=== PATIENT | male | born 1955 | race Caucasian/White ===

== ENCOUNTER 2016-07-10 07:02 | Emergency (ER) | payer MEDICAID ==
[2016-07-10 07:15] VITALS: RESP 16; TEMP 98.4
[2016-07-10] MEDS ORDERED: levETIRAcetam 500 MG TAB PO ONE (07:15)
--- NOTE | 2016-07-10 07:18 | EDPHY ---
H & P Stated Complaint: seizure Time Seen by Provider: 07/10/16 07:06 HPI/ROS: CHIEF COMPLAINT: Seizure HISTORY OF PRESENT ILLNESS: The patient is a 60-year-old homeless man who had a seizure at the longterm. He was incontinent of urine. He denies any falls or trauma. He did not bite his tongue. He has a history of epilepsy and is not compliant with his Keppra. He has been seen here several times for the same. He tells me that he has been taking it 100 mg every day. According to the medical record he had been prescribed 500 mg twice daily and recently increased to 1000 mg twice daily. He has not had a fever. He denies any recent drug or alcohol use or withdrawal. He denies having any other significant past medical history. he denies headache REVIEW OF SYSTEMS: Constitutional: denies: chills, fever, recent illness, recent injury EENTM: denies: blurred vision, double vision, nose congestion Respiratory: denies: cough, shortness of breath Cardiac: denies: chest pain, irregular heart rate, lightheadedness, palpitations Gastrointestinal/Abdominal: denies: abdominal pain, diarrhea, nausea, vomiting, blood streaked stools Genitourinary: denies: dysuria, frequency, hematuria, pain Musculoskeletal: denies: joint pain, muscle pain Skin: denies: lesions, rash, jaundice, bruising Neurological: See HPI Hematologic/Lymphatic: denies: blood clots, easy bleeding, easy bruising Immunologic/allergic: denies: HIV/AIDS, transplant EXAM: GENERAL: Well-appearing, thin, in no acute distress. HEAD: Atraumatic, normocephalic. EYES: Pupils equal round and reactive to light, extraocular movements intact, sclera anicteric, conjunctiva are normal. ENT: TMs normal, nares patent, oropharynx clear without exudates. Moist mucous membranes. NECK: Normal range of motion, supple without lymphadenopathy or JVD. LUNGS: Breath sounds clear to auscultation bilaterally and equal. No wheezes rales or rhonchi. HEART: Regular rate and rhythm without murmurs, rubs or gallops. ABDOMEN: Soft, nontender, normoactive bowel sounds. No guarding, no rebound. No masses appreciated. BACK: No CVA tenderness, no spinal tenderness, step-offs or deformities EXTREMITIES: Normal range of motion, no pitting or edema. No clubbing or cyanosis. NEUROLOGICAL: Cranial nerves II through XII grossly intact. Normal speech, normal gait. 5/5 strength, normal movement in all extremities, normal sensation PSYCH: Normal mood, normal affect. SKIN: Warm, dry, normal turgor, no visible rashes or lesions. Source: Patient, EMS, Old records Exam Limitations: No limitations - Personal History Current Tetanus Diphtheria and Acellular Pertussis (TDAP): Unsure Tetanus Vaccine Date: < 10 years - Medical/Surgical History Hx Asthma: No Hx Chronic Respiratory Disease: No Hx Diabetes: No Hx Cardiac Disease: Yes Hx Renal Disease: No Hx Cirrhosis: No Hx Alcoholism: Yes Hx HIV/AIDS: No Hx Splenectomy or Spleen Trauma: No Other PMH: seizures, etoh, noncompliant with Keppra, hep c, HTN, Left shoulder dislocation - Family History Significant Family History: Hypertension - Social History Smoking Status: Former smoker Alcohol Use: Sober Drug Use: Marijuana Constitutional: Initial Vital Signs Temperature (C) 36.9 C 07/10/16 07:12 Heart Rate 100 07/10/16 07:12 Respiratory Rate 16 07/10/16 07:12 Blood Pressure 199/111 H 07/10/16 07:12 O2 Sat (%) 95 07/10/16 07:12 O2 Delivery Mode Room Air Allergies/Adverse Reactions: venom-wasp [Wasp Venom] Allergy (Severe, Verified 07/04/16 06:50) Anaphylaxis venom-honey bee [bee venom (honey bee)] Allergy (Verified 07/04/16 06:50) Home Medications: Medication Instructions Recorded Atenolol [Tenormin 50 mg (*)] 50 mg PO DAILY #30 tab 03/14/16 Acetaminophen [Tylenol 325mg (*)] 650 mg PO Q4 PRN #0 tab 06/11/16 levETIRAcetam [Keppra 500 mg (*)] 1,000 mg PO BID #30 tab 06/11/16 Medical Decision Making ED Course/Re-evaluation: I will administer 1000 mg of Keppra to the patient. This is supposed to be his home medication dose p.o. here with a long discussion about how much he is supposed to be taking and how regularly he is supposed to be taking it. He denies having any new symptoms today and does not wish to have any workup. He sees Dr. Ramonita Arroyo for his seizure management. Also discussed referral to Neurology. 8:20 a.m. the patient seems to have quite a bit of confusion concerning his medication doses. He tells me now that he takes 3000 mg every morning. He does not take any at night. we discussed the fact that it is supposed to be twice daily. I suggested that he take 1500 in the morning and 1500 at night or 1000 mg three times daily. Patient states that he will try this. Will also a follow-up with Neurology. He is eager to go and declines any further workup or testing at this time. Differential Diagnosis: Partial list of the Differential diagnosis considered include but were not limited to; epilepsy, seizure, incontinence, alcohol withdrawal, benzodiazepine withdrawal, medication noncompliance and although unlikely based on the history and physical exam, I also considered head injury, infection, hemorrhage, non accidental trauma,. I discussed these differential diagnoses and the plan with the patient as well as the usual and expected course. The patient understands that the diagnosis is provisional and that in medicine we are not always correct and that further workup is often warranted. Usual and customary warnings were given. All of the patient's questions were answered. The patient was instructed to return to the emergency department should the symptoms at all worsen or return, otherwise to followup with the physician as we discussed. - Data Points Medications Given: Discontinued Medications Levetiracetam (Keppra) 1,000 mg PO EDNOW ONE Stop: 07/10/16 07:16 Last Admin: 07/10/16 07:18 Dose: 1,000 mg Departure - Departure Disposition: Home, Routine, Self-Care Clinical Impression: Seizure Condition: Fair Instructions: Epilepsy (ED), Levetiracetam (By mouth) Additional Instructions: It is important that you take your Keppra 1000 mg twice daily as prescribed. That is 2 tablets in the morning and 2 tablets in the evening. Referrals: NONE *PRIMARY CARE P,. [Primary Care Provider] - As per Instructions Ander Singh DO [Medical Doctor] - As per Instructions
[2016-07-10 08:32] VITALS: BP 159/99; PULSE 82; O2SAT 97
== END 2016-07-10 09:02 | disposition home or self-care (01) ==
LOC: EDUNIT#
DX: G40.909 Epilepsy, unspecified, not intractable, without status epilepticus (principal); I10 Essential (primary) hypertension; Z87.891 Personal history of nicotine dependence

== ENCOUNTER 2016-07-31 11:01 | Emergency (ER) | payer MEDICAID ==
[2016-07-31 11:13] VITALS: RESP 18
--- NOTE | 2016-07-31 12:09 | EDPHY ---
H & P Time Seen by Provider: 07/31/16 12:08 HPI/ROS: CHIEF COMPLAINT: Seizure. HISTORY OF PRESENT ILLNESS: This is a 60-year-old homeless male with a known seizure disorder who presents after having a seizure this morning. He was initially combative and post-ictal but calmed down after a period of time. Blood sugar was adequate. He denies head trauma, neck pain, oral trauma, or other complaints from the seizure. He reports that he has been compliant with his Keppra. He is well-known to this emergency department for seizures. REVIEW OF SYSTEMS: A complete 10-point review of systems was performed and is negative except for those items mentioned in the HPI. Past Medical/Surgical History: Seizure disorder. Social History: Homeless. Smoking Status: Former smoker Physical Exam: General Appearance: Alert, no distress Eyes: Pupils equal and round, no conjunctival pallor or injection ENT, Mouth: Mucous membranes moist Neck: Normal inspection Respiratory: Lungs are clear to auscultation Cardiovascular: Regular rate and rhythm Gastrointestinal: Abdomen is soft and non- tender Neurological: A&O, nonfocal, normal gait Skin: Warm and dry, no rash Extremities: Nontender, no pedal edema Psychiatric: Mood and affect normal Constitutional: Initial Vital Signs Temperature (C) 36.9 C 07/31/16 11:10 Heart Rate 91 07/31/16 11:10 Respiratory Rate 18 07/31/16 11:10 Blood Pressure 162/113 H 07/31/16 11:10 O2 Sat (%) 93 07/31/16 11:10 O2 Delivery Mode Room Air Allergies/Adverse Reactions: venom-wasp [Wasp Venom] Allergy (Severe, Verified 07/04/16 06:50) Anaphylaxis venom-honey bee [bee venom (honey bee)] Allergy (Verified 07/04/16 06:50) Home Medications: Medication Instructions Recorded Atenolol [Tenormin 50 mg (*)] 50 mg PO DAILY #30 tab 03/14/16 Acetaminophen [Tylenol 325mg (*)] 650 mg PO Q4 PRN #0 tab 06/11/16 levETIRAcetam [Keppra 500 mg (*)] 1,000 mg PO BID #30 tab 06/11/16 Medical Decision Making ED Course/Re-evaluation: 500mg PO Keppra administered. No evidence hypoglycemia, status epilepticus or seizure-related trauma. - Data Points Medications Given: Discontinued Medications Levetiracetam (Keppra) 500 mg PO EDNOW ONE Stop: 07/31/16 12:27 Last Admin: 07/31/16 12:34 Dose: 500 mg Departure - Departure Disposition: Home, Routine, Self-Care Clinical Impression: Seizure Condition: Good Instructions: Recurrent Seizures in Adults (ED) Additional Instructions: Continue to take your Keppra as prescribed. Follow up with your primary care provider this week. Return to the emergency department if you experience serious worsening of condition. Referrals: Ramonita Arroyo PA [Primary Care Provider] - As per Instructions Report Scribed for: Fiona Higginbotham Report Scribed by: Gino Hope Date of Report: 07/31/16 Time of Report: 12:09 Physician Review and Approval Statement: 07/31/16 12:09 Portions of this note were transcribed by a medical technologist chemistry. I personally performed a history, physical exam, medical decision making, and confirmed accuracy of information the transcribed note.
[2016-07-31] MEDS ORDERED: levETIRAcetam 500 MG TAB PO ONE (12:26)
[2016-07-31 12:35] VITALS: BP 114/91; PULSE 76; TEMP 98.2; O2SAT 96
== END 2016-07-31 12:39 | disposition home or self-care (01) ==
LOC: EDUNIT#
DX: R56.9 Unspecified convulsions (principal); Z87.891 Personal history of nicotine dependence

== ENCOUNTER 2016-08-31 22:23 | Emergency (ER) | payer MEDICAID ==
[2016-08-31] MEDS ORDERED: LORazepam 2 MG/ML INJ IVP ONE (22:31)
[2016-08-31 22:46] VITALS: BP 106/87; TEMP 97.5
--- NOTE | 2016-08-31 23:26 | EDPHY ---
H & P Time Seen by Provider: 08/31/16 22:24 HPI/ROS: CHIEF COMPLAINT: Seizure HISTORY OF PRESENT ILLNESS: 60-year-old male with a known seizure disorder presents to the emergency department by EMS after having witnessed seizure at the [facility]. The patient apparently was confused consistent with being postictal prior to arrival. He is now alert and oriented. It is not clear whether this patient has been taking his medication or not. He does admit to drinking alcohol. There has been no reported trauma. REVIEW OF SYSTEMS: Constitutional: No fever, no chills. Eyes: No double or blurry vision. ENT: No sore throat. Respiratory: No cough, no shortness of breath. Cardiac: No chest pain. Gastrointestinal: No abdominal pain, vomiting or diarrhea. Genitourinary: No dysuria. Musculoskeletal: No neck or back pain. Skin: No rashes. Neurological: No headache. Past Medical/Surgical History: Traumatic brain injury, seizure disorder, alcohol abuse, hepatitis-C, noncompliant with Keppra Social History: Single Smoking Status: Former smoker Physical Exam: General Appearance: Alert, no distress. Eyes: Pupils equal and round. Extraocular motions are all intact. ENT: Mouth: Mucous membranes moist. Dry blood noted noted around the patient' s lip. Unable to determine if possible laceration or bite to tongue is noted since he will not let me evaluate his mouth. Respiratory: No wheezing, rhonchi, or rales, lungs are clear to auscultation. Cardiovascular: Regular rate and rhythm. Gastrointestinal: Abdomen is soft and nontender, no masses, no rebound or guarding, bowel sounds normal. Neurological: uncooperative, cannot determine. Skin: Warm and dry, no rashes. Musculoskeletal: Nontender to palpate along the cervical, thoracic or lumbar spine. Neck is supple. Extremities: Full range of motion and no peripheral edema. Psychiatric: agitated Constitutional: Initial Vital Signs Temperature (C) 36.4 C 08/31/16 22:30 Heart Rate 84 08/31/16 22:30 Respiratory Rate 18 08/31/16 22:30 Blood Pressure 106/87 H 08/31/16 22:30 O2 Sat (%) 96 08/31/16 22:30 O2 Delivery Mode Room Air Allergies/Adverse Reactions: venom-wasp [Wasp Venom] Allergy (Severe, Verified 08/31/16 22:32) Anaphylaxis venom-honey bee [bee venom (honey bee)] Allergy (Verified 08/31/16 22:32) Home Medications: Medication Instructions Recorded Atenolol [Tenormin 50 mg (*)] 50 mg PO DAILY #30 tab 03/14/16 Acetaminophen [Tylenol 325mg (*)] 650 mg PO Q4 PRN #0 tab 06/11/16 levETIRAcetam [Keppra 500 mg (*)] 1,000 mg PO BID #30 tab 06/11/16 Medical Decision Making ED Course/Re-evaluation: 60-year-old male with a known seizure disorder who is noncompliant with his Keppra presents after having a witnessed seizure at the [facility]. Head CT is pending. Patient was given 1 mg of Ativan IV to prevent recurring seizure. Case was discussed with Dr. Arsenio Saucedo, secondary supervising physician. Differential Diagnosis: Seizure including but not limited to electrolyte abnormality, alcohol withdrawal , medication noncompliance, head injury, and breakthrough seizure. - Data Points Medications Given: Discontinued Medications Lorazepam (Ativan Injection) 1 mg IVP EDNOW ONE Stop: 08/31/16 22:32 Last Admin: 08/31/16 22:41 Dose: 1 mg Departure - Departure Disposition: Home, Routine, Self-Care Clinical Impression: Seizure Condition: Good Referrals: Patient,NotPresent [Primary Care Provider] - As per Instructions
[2016-09-01 00:59] VITALS: PULSE 89; RESP 16; O2SAT 94
== END 2016-09-01 00:59 | disposition home or self-care (01) ==
LOC: EDUNIT#
DX: G40.909 Epilepsy, unspecified, not intractable, without status epilepticus (principal); Z87.891 Personal history of nicotine dependence
CPT/HCPCS: 96374

== ENCOUNTER 2016-09-12 07:19 | Emergency (ER) | payer MEDICAID ==
[2016-09-12 07:27] VITALS: RESP 16; TEMP 98.4
--- NOTE | 2016-09-12 07:27 | EDPHY ---
HPI/HX/ROS/PE/MDM Narrative: CHIEF COMPLAINT: Seizure. HPI: The patient is a 60-year-old male presenting via EMS for a seizure 30 minutes ago. The seizure was witnessed by bystanders and he was helped to the ground. He did not hit his head or sustain other traumas. He is post-ictal on arrival. He is seen in the emergency department often for seizures. This presentation is identical to his others and has no different factors. REVIEW OF SYSTEMS: Aside from elements discussed in the HPI, a comprehensive 10-point review of systems was reviewed and is negative. PMH: Seizure disorder. SOCIAL HISTORY: Homeless. PHYSICAL EXAM: General: Patient is alert, in no acute distress. ENT: Eyes are normal to inspection. ENT inspection normal. Neck: Normal inspection. Full range of motion. Respiratory: No respiratory distress. Breath sounds normal bilaterally. Cardiovascular: Regular rate and rhythm. Strong peripheral pulses. Abdomen: The abdomen is nontender to palpation. There are no peritoneal signs. There are normal bowel sounds. Back: Normal to inspection. No tenderness to palpation. Skin: Normal color. No rash. Warm and dry. Extremities: Normal appearance. Full range of motion. Neuro: Oriented x3. Normal motor function. Normal sensory function. Portions of this note were transcribed by an ED scribe. I personally performed the history, physical exam, and medical decision making; and confirm the accuracy of the information in the transcribed note. ED Course: I met EMS on arrival and obtained a report from the online merchandising coordinator. 0739: Patient began seizing while in the emergency department. After 1mg Ativan his seizure subsided. 1238: Patient ambulating well and is ready to go. - Data Points Medications Given: Discontinued Medications Sodium Chloride (Ns) 1,000 mls @ 0 mls/hr IV ONCE ONE PRN Reason: Wide Open Stop: 09/12/16 08:03 Last Admin: 09/12/16 07:55 Dose: 1,000 mls Lorazepam (Ativan Injection) 1 mg IVP EDNOW ONE Stop: 09/12/16 08:03 Last Admin: 09/12/16 07:55 Dose: 1 mg General Initial Vital Signs: Initial Vital Signs Temperature (C) 36.9 C 09/12/16 07:19 Heart Rate 83 09/12/16 07:19 Respiratory Rate 16 09/12/16 07:19 Blood Pressure 150/111 H 09/12/16 07:19 O2 Sat (%) 98 09/12/16 07:19 O2 Delivery Mode Room Air Allergies/Adverse Reactions: venom-wasp [Wasp Venom] Allergy (Severe, Verified 08/31/16 22:32) Anaphylaxis venom-honey bee [bee venom (honey bee)] Allergy (Verified 08/31/16 22:32) Home Medications: Medication Instructions Recorded Atenolol [Tenormin 50 mg (*)] 50 mg PO DAILY #30 tab 03/14/16 Acetaminophen [Tylenol 325mg (*)] 650 mg PO Q4 PRN #0 tab 06/11/16 levETIRAcetam [Keppra 500 mg (*)] 1,000 mg PO BID #30 tab 06/11/16 Departure - Departure Disposition: Home, Routine, Self-Care Clinical Impression: Seizure Condition: Good Instructions: Recurrent Seizures in Adults (ED) Additional Instructions: Follow up with [facility] this week. Return for any serious worsening of condition. Referrals: [facility],. [Clinic] - As per Instructions Report Scribed for: Allen Schrader Report Scribed by: Gino Hope Date of Report: 09/12/16 Time of Report: 07:27
[2016-09-12] MEDS ORDERED: LORazepam 2 MG/ML INJ ONE (07:41)
[2016-09-12] MEDS ORDERED: LORazepam 2 MG/ML INJ IVP ONE (08:02)
[2016-09-12] MEDS ORDERED: NS 1,000 ML IV ONE (08:02)
[2016-09-12 11:16] VITALS: BP 144/84; PULSE 104; O2SAT 98
== END 2016-09-12 13:09 | disposition home or self-care (01) ==
DX: G40.909 Epilepsy, unspecified, not intractable, without status epilepticus (principal)
CPT/HCPCS: 96374

== ENCOUNTER 2016-10-23 08:22 | Emergency (ER) | payer MEDICAID ==
[2016-10-23] MEDS ORDERED: NS 1,000 ML IV ONE (08:32)
--- NOTE | 2016-10-23 08:32 | EDPHY ---
H & P Time Seen by Provider: 10/23/16 08:26 HPI/ROS: CHIEF COMPLAINT: SEIZURE HISTORY OF PRESENT ILLNESS: The patient is a 61-year-old homeless man well known to our department. He has a history of epilepsy as well as alcoholism and noncompliance with his Keppra. He had a seizure on the bus today. His friends who were there told paramedics that this is baseline for him. He is also frequently combative in the postictal phase and when he becomes more alert. Who required soft restraints by EMS. He did appear postictal to them. The blood glucose on scene was 106. He was given 5 mg of IV Valium. He has been more calm since that time. He does have a note in our system requesting that he have blood alcohol level drawn. I will also give him Keppra. REVIEW OF SYSTEMS: Constitutional: denies: chills, fever, recent illness, recent injury EENTM: denies: blurred vision, double vision, nose congestion Respiratory: denies: cough, shortness of breath Cardiac: denies: chest pain, irregular heart rate, lightheadedness, palpitations Gastrointestinal/Abdominal: denies: abdominal pain, diarrhea, nausea, vomiting, blood streaked stools Genitourinary: denies: dysuria, frequency, hematuria, pain Musculoskeletal: denies: joint pain, muscle pain Skin: denies: lesions, rash, jaundice, bruising Neurological: denies: headache, numbness, paresthesia, tingling, dizziness, weakness Hematologic/Lymphatic: denies: blood clots, easy bleeding, easy bruising Immunologic/allergic: denies: HIV/AIDS, transplant EXAM: GENERAL: Well-appearing, thin . HEAD: Atraumatic, normocephalic. EYES: Pupils equal round and reactive to light, extraocular movements intact, sclera anicteric, conjunctiva are normal. ENT: TMs normal, nares patent, oropharynx clear without exudates. Moist mucous membranes. NECK: Normal range of motion, supple without lymphadenopathy or JVD. LUNGS: Breath sounds clear to auscultation bilaterally and equal. No wheezes rales or rhonchi. HEART: Regular rate and rhythm without murmurs, rubs or gallops. ABDOMEN: Soft, nontender, normoactive bowel sounds. No guarding, no rebound. No masses appreciated. BACK: No CVA tenderness, no spinal tenderness, step-offs or deformities EXTREMITIES: Normal range of motion, no pitting or edema. No clubbing or cyanosis. NEUROLOGICAL: Cranial nerves II through XII grossly intact. Normal speech, normal gait. 5/5 strength, normal movement in all extremities, normal sensation PSYCH: Confused and not cooperative SKIN: Warm, dry, normal turgor, no visible rashes or lesions. No signs of trauma Source: Patient, EMS, Old records Exam Limitations: Clinical condition - Personal History Tetanus Vaccine Date: < 10 years - Medical/Surgical History Hx Asthma: No Hx Chronic Respiratory Disease: No Hx Diabetes: No Hx Cardiac Disease: Yes Hx Renal Disease: No Hx Cirrhosis: No Hx Alcoholism: Yes Hx HIV/AIDS: No Hx Splenectomy or Spleen Trauma: No Other PMH: seizures, etoh, noncompliant with Keppra, hep c, HTN, Left shoulder dislocation - Family History Significant Family History: No pertinent family hx - Social History Smoking Status: Former smoker Alcohol Use: Heavy Drug Use: Marijuana Constitutional: Initial Vital Signs Temperature (C) 36.7 C 10/23/16 08:22 Heart Rate 101 H 10/23/16 08:22 Respiratory Rate 20 10/23/16 08:22 Blood Pressure 145/93 H 10/23/16 08:22 O2 Sat (%) 91 L 10/23/16 08:22 O2 Delivery Mode Room Air Allergies/Adverse Reactions: venom-wasp [Wasp Venom] Allergy (Severe, Verified 10/23/16 08:29) Anaphylaxis venom-honey bee [bee venom (honey bee)] Allergy (Verified 10/23/16 08:29) Home Medications: Medication Instructions Recorded Atenolol [Tenormin 50 mg (*)] 50 mg PO DAILY #30 tab 03/14/16 Acetaminophen [Tylenol 325mg (*)] 650 mg PO Q4 PRN #0 tab 06/11/16 levETIRAcetam [Keppra 500 mg (*)] 1,000 mg PO BID #30 tab 06/11/16 Medical Decision Making ED Course/Re-evaluation: 9:40 a.m. patient is awake and alert. He is eager to go. He is currently cooperative. He is not showing signs of alcohol withdrawal. His alcohol level is 0. We will discharge him at this point. We discussed indications for returning. We encouraged him to take his Keppra as prescribed. He has been given a loading dose here. Differential Diagnosis: Partial list of the Differential diagnosis considered include but were not limited to; epilepsy, alcohol withdrawal, head injury and although unlikely based on the history and physical exam, I also considered infection, assault, stroke. I discussed these differential diagnoses and the plan with the patient as well as the usual and expected course. The patient understands that the diagnosis is provisional and that in medicine we are not always correct and that further workup is often warranted. Usual and customary warnings were given. All of the patient's questions were answered. The patient was instructed to return to the emergency department should the symptoms at all worsen or return, otherwise to followup with the physician as we discussed. - Data Points Medications Given: Discontinued Medications Sodium Chloride (Ns) 1,000 mls @ 0 mls/hr IV ONCE ONE PRN Reason: Wide Open Stop: 10/23/16 08:33 Last Admin: 10/23/16 08:54 Dose: 1,000 mls Levetiracetam 1,000 mg/ Sodium (Chloride) 110 mls @ 440 mls/hr IV EDNOW ONE Stop: 10/23/16 08:47 Last Admin: 10/23/16 09:05 Dose: 110 mls Departure - Departure Disposition: Home, Routine, Self-Care Clinical Impression: Seizure disorder, Noncompliance with medication regimen Condition: Fair Instructions: Levetiracetam (By mouth), Epilepsy (ED) Referrals: Dane Carter MD [Medical Doctor] - As per Instructions
[2016-10-23] MEDS ORDERED: levETIRAcetam 1,000 MG in NS 100 ML IV ONE (08:33)
[2016-10-23 09:26] LABS: ETHANOL SERUM < 10 mg/dL (0-10); SPECIMEN HEMOLYSIS 115
[2016-10-23 10:00] VITALS: BP 137/67; PULSE 81; RESP 18; TEMP 98.6; O2SAT 92
== END 2016-10-23 10:00 | disposition home or self-care (01) ==
LOC: EDUNIT#
DX: G40.909 Epilepsy, unspecified, not intractable, without status epilepticus (principal); I10 Essential (primary) hypertension; Z91.14 Patient's other noncompliance with medication regimen; Z87.891 Personal history of nicotine dependence
CPT/HCPCS: 96374; G0480; J1953

== ENCOUNTER 2016-10-28 07:23 | Emergency (ER) | payer MEDICAID ==
[2016-10-28 07:31] VITALS: TEMP 98.4
--- NOTE | 2016-10-28 08:20 | EDPHY ---
H & P Smoking Status: Former smoker Time Seen by Provider: 10/28/16 07:50 HPI/ROS: CHIEF COMPLAINT: Unwitnessed trauma, possible seizure HISTORY OF PRESENT ILLNESS: 61-year-old male presents to the emergency department after possible seizure. The patient is homeless. He has a history of ETOH abuse as well as seizure disorder and has been noncompliant with his Keppra. The patient does not remember what happened. He was found lying on the street covered in blood. The patient thinks that he may have had a seizure. He denies chest pain or difficulty breathing. Denies abdominal pain. Denies headache. He sustained multiple facial lacerations. He is complaining of pain in his lip. Denies abdominal pain. Denies injury to upper or lower extremities. REVIEW OF SYSTEMS: Constitutional: No fever, no chills. Eyes: No double or blurry vision. ENT: No sore throat. Respiratory: No cough, no shortness of breath. Cardiac: No chest pain. Gastrointestinal: No abdominal pain, vomiting or diarrhea. Genitourinary: No dysuria. Musculoskeletal: No neck or back pain. Skin: Facial injury as above. No rashes. Neurological: No headache. (Graciela Heredia) Past Medical/Surgical History: Seizure disorder noncompliant with Keppra, alcoholism, hepatitis-C, hypertension (Graciela Heredia) Social History: Homeless (Graciela Heredia) Physical Exam: General Appearance: lethargic. Patient has multiple facial lacerations, detailed below. Eyes: Pupils equal and round. Extraocular motions are all intact. ENT: Mouth: Mucous membranes moist. No dental injury. No tongue laceration or abrasion. Respiratory: No wheezing, rhonchi, or rales, lungs are clear to auscultation. Cardiovascular: Regular rate and rhythm. Gastrointestinal: Abdomen is soft and nontender, no masses, no rebound or guarding, bowel sounds normal. Neurological: Uncooperative, cannot determine. Skin: 1.5 cm right anterior chin laceration. There is also a small right lower lip laceration as well. There was an abrasion to the right cheek as well as a small laceration to the right eyebrow. Warm and dry, no rashes. Musculoskeletal: Nontender to palpate along the cervical, thoracic or lumbar spine. Neck is supple. Extremities: Full range of motion and no peripheral edema. Psychiatric: Agitated. (Graciela Heredia) Constitutional: Initial Vital Signs Temperature (C) 36.9 C 10/28/16 07:29 Heart Rate 76 10/28/16 07:29 Respiratory Rate 18 10/28/16 07:29 Blood Pressure 216/119 H 10/28/16 07:29 O2 Sat (%) 94 10/28/16 07:29 O2 Delivery Mode Room Air Allergies/Adverse Reactions: venom-wasp [Wasp Venom] Allergy (Severe, Verified 10/28/16 07:29) Anaphylaxis venom-honey bee [bee venom (honey bee)] Allergy (Verified 10/28/16 07:29) Home Medications: Medication Instructions Recorded Atenolol [Tenormin 50 mg (*)] 50 mg PO DAILY #30 tab 03/14/16 Acetaminophen [Tylenol 325mg (*)] 650 mg PO Q4 PRN #0 tab 06/11/16 levETIRAcetam [Keppra 500 mg (*)] 1,000 mg PO BID #30 tab 06/11/16 Medical Decision Making - Diagnostics Imaging: Discussed imaging studies w/ will call clerk Radiologist ED Course/Re-evaluation: 61-year-old male presents to the emergency department after possible seizure. The patient has a history of seizure disorder and has been noncompliant with his Keppra. The patient was monitored throughout his stay in the emergency department. The patient had a witnessed seizure by 1 of the nurses. He had an IV established and was given 1 mg of Ativan IV. He did not have any other recurring seizures. CT imaging of the head and cervical spine were negative for fractures. No intracranial bleeding. The patient had superficial abrasion to the right eyebrow and right cheek and had a laceration to the anterior aspect of the right esparza in his right lower lip. Multiple attempts were made to try to anesthetize and repair the lip, however the patient would not cooperate and hold still. The patient has a history of hepatitis C and I explained to the patient that it was not worth our staff being possibly stuck with a needle if he was not able to cooperate and hold still. The patient refused laceration repair. The patient is aware that the wound will scar. ETOH was negative. (Graciela Heredia) Differential Diagnosis: Seizure including but not limited to electrolyte abnormality, alcohol withdrawal , medication noncompliance, head injury, and breakthrough seizure. (Graciela Heredia) Other Provider: The patient was evaluated and managed by the Physician Trash Collector/ Nurse Practitioner. I discussed the patient's presentation and course with the midlevel provider with them and agree with the evaluation. My co-signature indicates that I have reviewed this chart and I agree with the findings and plan of care as documented. I am the secondary supervising physician. (Brenda Hanson) - Data Points Laboratory Results: Laboratory Results 10/28/16 09:25 10/28/16 09:25 Medications Given: Discontinued Medications Lorazepam (Ativan Injection) 1 mg IVP EDNOW ONE Stop: 10/28/16 09:24 Last Admin: 10/28/16 09:25 Dose: 1 mg Departure - Departure Disposition: Home, Routine, Self-Care Clinical Impression: Face lacerations, Seizure Condition: Good Instructions: Epilepsy (ED), Alcohol Intoxication (ED) Additional Instructions: You are unable to cooperate and hold still and therefore your facial lacerations were unable to be repaired. You should continue her Keppra as prescribed. Follow up with your primary care provider to recheck Sunday. Referrals: [facility],. [Clinic] - 1-2 days without fail
[2016-10-28] MEDS ORDERED: LORazepam 2 MG/ML INJ ONE (09:22)
[2016-10-28] MEDS ORDERED: LORazepam 2 MG/ML INJ IVP ONE (09:23)
[2016-10-28 09:37] LABS: % IMMATURE GRANULYOCYTES 0.4 % (0.0-1.1); ABSOLUTE IMMATURE GRANULOCYTES 0.03 10^3/uL (0.00-0.10); ADD DIFF? NO; ADD MORPH? NO; ADD SCAN? NO; ATYPICAL LYMPHOCYTE FLAG 0 (0-99); FRAGMENT RBC FLAG 10 (0-99); HEMATOCRIT 34.4 % (40.0-51.0); HEMOGLOBIN 10.4 g/dL (13.7-17.5); LEFT SHIFT FLG 0 (0-99); LIPEMIA HEMOLYSIS FLAG 80 (0-99); MEAN CELL HEMOGLOBIN 25.3 pg (27.9-34.1); MEAN CELL HEMOGLOBIN CONCENTR. 30.2 g/dL (32.4-36.7); MEAN CELL VOLUME 83.7 fL (81.5-99.8); PLATELET CLUMPS FLAG 0 (0-99); PLATELET COUNT 679 10^3/uL (150-400); RED BLOOD CELL COUNT 4.11 10^6/uL (4.40-6.38); RED CELL DISTRIBUTION WIDTH 18.3 % (11.5-15.2)
[2016-10-28 09:58] LABS: ANION GAP 21 mEq/L (8-16); CALCIUM 9.2 mg/dL (8.5-10.4); CARBON DIOXIDE 13 mEq/l (22-31); CHLORIDE 104 mEq/L (97-110); CREATININE 1.3 mg/dL (0.7-1.3); ETHANOL SERUM < 10 mg/dL (0-10); GLOMERULAR FILTRATION RATE 57; GLUCOSE 119 mg/dL (70-100); POTASSIUM 4.5 mEq/L (3.5-5.2); SODIUM 138 mEq/L (134-144)
[2016-10-28 10:26] VITALS: RESP 16; O2SAT 95
[2016-10-28 11:20] VITALS: BP 159/113; PULSE 72
== END 2016-10-28 11:34 | disposition home or self-care (01) ==
LOC: EDUNIT#
DX: S01.81XA Laceration without foreign body of other part of head, initial encounter (principal); G40.909 Epilepsy, unspecified, not intractable, without status epilepticus; I10 Essential (primary) hypertension; Z87.891 Personal history of nicotine dependence; X58.XXXA Exposure to other specified factors, initial encounter
CPT/HCPCS: 96374; G0480; J2060

== ENCOUNTER 2016-12-02 06:13 | Emergency (ER) | payer MEDICAID ==
[2016-12-02] MEDS ORDERED: levETIRAcetam 500 MG in NS 100 ML IV ONE (06:31)
[2016-12-02 06:57] LABS: ADD DIFF? YES; ADD MORPH? NO; ADD SCAN? NO; ATYPICAL LYMPHOCYTE FLAG 30 (0-99); FRAGMENT RBC FLAG 20 (0-99); HEMATOCRIT 27.8 % (40.0-51.0); HEMOGLOBIN 8.8 g/dL (13.7-17.5); LEFT SHIFT FLG 0 (0-99); LIPEMIA HEMOLYSIS FLAG 80 (0-99); MEAN CELL HEMOGLOBIN 24.6 pg (27.9-34.1); MEAN CELL HEMOGLOBIN CONCENTR. 31.7 g/dL (32.4-36.7); MEAN CELL VOLUME 77.9 fL (81.5-99.8); MEAN PLATELET VOLUME 8.4 fL (8.7-11.7); PLATELET CLUMPS FLAG 0 (0-99); PLATELET COUNT 558 10^3/uL (150-400); RED BLOOD CELL COUNT 3.57 10^6/uL (4.40-6.38); RED CELL DISTRIBUTION WIDTH 18.3 % (11.5-15.2)
--- NOTE | 2016-12-02 07:02 | EDPHY ---
HPI/HX/ROS/PE/MDM Narrative: CHIEF COMPLAINT: Seizure, head abrasion HPI: The patient is a 61 y/o male, with history of seizure disorder and alcohol abuse, who arrives via EMS after a seizure this morning outside the [facility]. He is well-known to this department with 19 previous ED visits in the last year for similar issues. During his most recent admission in June 2016, he was adamant that he was compliant with his Keppra and was not drinking alcohol. This morning he was found seizing outside the detox center by staff. It's uncertain when his last alcohol intake was. On assessment, he is alert and oriented and denies any acute complaints. He does have a facial abrasion, but denies pain, weakness, paresthesias. No anticoagulant use per medical records. REVIEW OF SYSTEMS: Aside from elements discussed in the HPI, a comprehensive 10-point review of systems was reviewed and is negative. PMH: Recurrent seizures, hepatitis C, hypertension, anemia, current lice infection SOCIAL HISTORY: Homeless, heavy alcohol use. Prior medical records reviewed including admission 06/10/16 for seizure and ED visit 10/28/16 for seizure. PHYSICAL EXAM: General:Patient is alert to voice, in no acute distress. Head: Contusion, abrasion, hematoma to left eyebrow ENT:Eyes are normal to inspection. ENT inspection normal. Neck: Normal inspection. Full range of motion. Respiratory:No respiratory distress. Breath sounds normal bilaterally. Cardiovascular: Regular rate and rhythm. Strong peripheral pulses. Normal cap refill. Abdomen:The abdomen is nontender to palpation. There are no peritoneal signs. Back: Normal to inspection. No tenderness to palpation. Skin: Normal color. No rash. Warm and dry. Extremities: Normal appearance. Full range of motion. Neuro: Oriented x3. Tracking. Normal motor function. Normal sensory function. ED Course: This is a 61 y/o male with a history of recurrent seizures in the setting of suspected medication non-compliance and alcohol abuse. He has a small abrasion and hematoma above his left eyebrow, but his exam is otherwise unremarkable. He has no midline spinal tenderness and a normal neuro exam. C-collar removed by myself. He does not meet criteria for imaging. Plan for IV, basic labs including EtOH serum, and 500mg IV Keppra. 25mg PO Librium administered. - Data Points Laboratory Results: Laboratory Results 12/02/16 06:48 12/02/16 06:48 12/02/16 12/02/16 12/02/16 06:48 06:48 06:48 WBC 5.27 10^3/uL 10^3/uL (3.80-9.50) RBC 3.57 10^6/uL L 10^6/uL (4.40-6.38) Hgb 8.8 g/dL L g/dL (13.7-17.5) Hct 27.8 % L % (40.0-51.0) MCV 77.9 fL L fL (81.5-99.8) MCH 24.6 pg L pg (27.9-34.1) MCHC 31.7 g/dL L g/dL (32.4-36.7) RDW 18.3 % H % (11.5-15.2) Plt Count 558 10^3/uL H 10^3/uL (150-400) MPV 8.4 fL L fL (8.7-11.7) Neut % (Auto) Not Reported Lymph % (Auto) Not Reported [place] % (Auto) Not Reported Eos % (Auto) Not Reported Baso % (Auto) Not Reported Nucleat RBC Rel Count 0.0 % % (0.0-0.2) Absolute Neuts (auto) Not Reported Absolute Lymphs (auto) Not Reported Absolute Monos (auto) Not Reported Absolute Eos (auto) Not Reported Absolute Basos (auto) Not Reported Absolute Nucleated RBC 0.00 10^3/uL 10^3/uL (0-0.01) Immature Gran % Not Reported Seg Neutrophils % 30 % % Lymphocytes % 21 % % Monocytes % 16 % % Eosinophils % 29 % % Basophils % 4 % % Immature Gran # Not Reported Absolute Seg Neuts 1.58 10^/uL L 10^/uL (1.70-6.50) Absolute Lymphocytes 1.11 10^3/uL 10^3/uL (1.00-3.00) Absolute Monocytes 0.84 10^3/uL H 10^3/uL (0.30-0.80) Absolute Eosinophils 1.53 10^3/uL H 10^3/uL (0.03-0.40) Absolute Basophils 0.21 10^3/uL H 10^3/uL (0.02-0.10) Platelet Estimate INCREASED H (ADEQ) Hypochromasia 1+ H Acanthocytes (Spur) 1+ H Smear Review By Oskar WHITAKER MD Sodium 137 mEq/L mEq/L (134-144) Potassium 4.7 mEq/L mEq/L (3.5-5.2) Chloride 107 mEq/L mEq/L (97-110) Carbon Dioxide 21 mEq/l L mEq/l (22-31) Anion Gap 9 mEq/L mEq/L (8-16) BUN 16 mg/dL mg/dL (7-23) Creatinine 1.2 mg/dL mg/dL (0.7-1.3) Estimated GFR > 60 Glucose 77 mg/dL mg/dL (70-100) Calcium 8.7 mg/dL mg/dL (8.5-10.4) Ethyl Alcohol < 10 mg/dL mg/dL (0-10) Medications Given: Discontinued Medications Levetiracetam 500 mg/ Sodium (Chloride) 105 mls @ 420 mls/hr IV EDNOW ONE Stop: 12/02/16 06:45 Last Admin: 12/02/16 08:14 Dose: 105 mls General Initial Vital Signs: Initial Vital Signs Temperature (C) 36.6 C 12/02/16 06:52 Heart Rate 81 12/02/16 06:52 Respiratory Rate 16 12/02/16 06:52 Blood Pressure 131/61 H 12/02/16 06:52 O2 Sat (%) 96 12/02/16 06:52 O2 Delivery Mode Room Air Allergies/Adverse Reactions: venom-wasp [Wasp Venom] Allergy (Severe, Verified 12/02/16 06:51) Anaphylaxis venom-honey bee [bee venom (honey bee)] Allergy (Verified 12/02/16 06:51) Home Medications: Medication Instructions Recorded Atenolol [Tenormin 50 mg (*)] 50 mg PO DAILY #30 tab 03/14/16 Acetaminophen [Tylenol 325mg (*)] 650 mg PO Q4 PRN #0 tab 06/11/16 levETIRAcetam [Keppra 500 mg (*)] 1,000 mg PO BID #30 tab 06/11/16 Departure - Departure Disposition: Home, Routine, Self-Care Clinical Impression: Seizure disorder Anemia Qualifiers: Anemia type: other cause Other causes of anemia: other cause, not classified Qualified Code(s): D64.89 - Other specified anemias Condition: Good Instructions: Recurrent Seizures in Adults (ED) Additional Instructions: Take your Keppra as prescribed. Follow up with your neurologist for recurrent seizures. Follow up with your primary care provider for anemia. Return to the ED for worsening of condition. Referrals: NONE *PRIMARY CARE P,. [Primary Care Provider] - As per Instructions Dane Carter MD [Medical Doctor] - As per Instructions Report Scribed for: Allen Schrader Report Scribed by: Martha Cardenas Date of Report: 12/02/16 Time of Report: 06:56 Physician Review and Approval Statement: Portions of this note were transcribed by an ED scribe. I personally performed the history, physical exam, and medical decision making; and confirm the accuracy of the information in the transcribed note.
[2016-12-02 07:25] LABS: ANION GAP 9 mEq/L (8-16); CALCIUM 8.7 mg/dL (8.5-10.4); CARBON DIOXIDE 21 mEq/l (22-31); CHLORIDE 107 mEq/L (97-110); CREATININE 1.2 mg/dL (0.7-1.3); GLOMERULAR FILTRATION RATE > 60; GLUCOSE 77 mg/dL (70-100); POTASSIUM 4.7 mEq/L (3.5-5.2); SODIUM 137 mEq/L (134-144)
[2016-12-02 07:46] LABS: ACANTHOCYTES 1+; HYPOCHROMIA 1+; PLATELET ESTIMATE INCREASED (ADEQ)
[2016-12-02 07:52] LABS: ETHANOL SERUM < 10 mg/dL (0-10)
[2016-12-02 08:13] VITALS: RESP 18
[2016-12-02] MEDS ORDERED: chlordiazePOXIDE 25 MG CAP PO ONE (09:14)
[2016-12-02 09:27] VITALS: BP 128/67; PULSE 68; TEMP 97.9; O2SAT 95
== END 2016-12-02 09:34 | disposition home or self-care (01) ==
LOC: EDUNIT#
DX: G40.909 Epilepsy, unspecified, not intractable, without status epilepticus (principal); D64.89 Other specified anemias; I10 Essential (primary) hypertension
CPT/HCPCS: 96365; G0480; J1953

== ENCOUNTER 2016-12-12 08:07 | Inpatient (IN) | payer MEDICAID ==
[~2016-12-12 08:07] MED LIST: levETIRAcetam 500 MG TAB PO SCH
[2016-12-12] MEDS ORDERED: LORazepam 2 MG/ML INJ ONE ×2 (08:14→14:59)
[2016-12-12] MEDS ORDERED: LORazepam 2 MG/ML INJ IVP ONE ×3 (08:19→15:01)
[2016-12-12] MEDS ORDERED: NS 1,000 ML IV ONE (08:19)
[2016-12-12] MEDS ORDERED: levETIRAcetam 1,000 MG in NS 100 ML IV ONE (08:20)
[2016-12-12 08:28] LABS: ADD DIFF? YES; ADD MORPH? NO; ADD SCAN? NO; ATYPICAL LYMPHOCYTE FLAG 0 (0-99); FRAGMENT RBC FLAG 10 (0-99); HEMATOCRIT 29.9 % (40.0-51.0); HEMOGLOBIN 8.8 g/dL (13.7-17.5); LEFT SHIFT FLG 10 (0-99); LIPEMIA HEMOLYSIS FLAG 70 (0-99); MEAN CELL HEMOGLOBIN 24.4 pg (27.9-34.1); MEAN CELL HEMOGLOBIN CONCENTR. 29.4 g/dL (32.4-36.7); MEAN CELL VOLUME 82.8 fL (81.5-99.8); MEAN PLATELET VOLUME 8.3 fL (8.7-11.7); PLATELET CLUMPS FLAG 10 (0-99); PLATELET COUNT 610 10^3/uL (150-400); RED BLOOD CELL COUNT 3.61 10^6/uL (4.40-6.38); RED CELL DISTRIBUTION WIDTH 18.2 % (11.5-15.2)
[2016-12-12 08:39] LABS: ANION GAP 22 mEq/L (8-16); CALCIUM 8.9 mg/dL (8.5-10.4); CARBON DIOXIDE 17 mEq/l (22-31); CHLORIDE 106 mEq/L (97-110); CREATININE 1.4 mg/dL (0.7-1.3); ETHANOL SERUM < 10 mg/dL (0-10); GLOMERULAR FILTRATION RATE 52; GLUCOSE 126 mg/dL (70-100); POTASSIUM 4.8 mEq/L (3.5-5.2); SODIUM 145 mEq/L (134-144)
--- NOTE | 2016-12-12 08:40 | EDPHY ---
H & P Time Seen by Provider: 12/12/16 08:19 HPI/ROS: HPI Seizure. 61-year-old male by ambulance. He is very familiar to this emergency department and hospital. He is homeless. He has a known seizure disorder as well as history of alcohol abuse. He is noncompliant with his Keppra. He apparently had a seizure that was witnessed by a bystander who called EMS. This was described as tonic-clonic lasting 1-2 minutes. He then had another tonic-clonic seizure and route to the hospital lasting again 1-2 minutes. There is no history of trauma according to EMS. Patient is postictal and otherwise unresponsive. Shortly after arrival he had another tonic-clonic seizure. He was given 2 mg of IV Ativan. This resolved after about a minute. ROS: Constitutional: No fever, no chills. No weakness. Eyes: No discharge. No changes in vision. ENT: No sore throat. No nasal congestion or rhinorrhea. Respiratory: No cough. No shortness of breath. Cardiac: No chest pain, no palpitations. Gastrointestinal: No abdominal pain, no vomiting, no diarrhea. Genitourinary: No hematuria. No dysuria or increased frequency with urination. Musculoskeletal: No back pain. No neck pain. No myalgias or arthralgias. Skin: No rashes. Neurological: No headache. No focal weakness or altered sensation. Some elements of HPI on review of systems obtained after patient sobered. Past medical history: Seizures, alcohol abuse, noncompliance with seizure medications, hepatitis-C, hypertension, left shoulder dislocation, [facility]. Social history: Homeless. Smoker. Alcohol abuse. Physical Exam: General Appearance: Postictal, intermittent groans. Disheveled. He is thin in stature. Eyes: Pupils equal and round, symmetric bilaterally, no pallor or injection. No lid edema, erythema or injection. ENT, Mouth: Mucous membranes are moist. The pharyngeal tissues are unremarkable. No edema or swelling. No asymmetry suggestive of abscess. No erythema or exudates. No tongue lacerations. Respiratory: There are no retractions, lungs are clear to auscultation with good air movement bilaterally. Cardiovascular: Regular rate and rhythm. Tachycardia. No murmur. Gastrointestinal: Abdomen is soft, no masses, bowel sounds normal. No focal tenderness at McBurney's point. No Payton sign. Neurological: Motor sensory function is grossly intact. He is moving all 4 extremities. Cranial nerves grossly intact. No facial asymmetry.. Skin: Warm and dry, no rashes. Musculoskeletal: Neck is supple and nontender. Extremities are symmetrical. All joints range without pain or impingement. Database: EKG: Imaging: CT brain without contrast: No acute pathology. Results were discussed with staff radiologist. Procedures: Chest x-ray AP portable; the cardiac mediastinal silhouette is unremarkable. No evidence of infiltrate or pneumothorax. Left clavicle plate is stable. Mild peripheral bronchitis. No other acute cardiopulmonary disease process noted. Interpreted by me. Emergency department course: IV placed. He was placed on a monitor. Shortly after his arrival he had another tonic-clonic seizure. This resolved after 1 minutes. He was given 2 mg of IV Ativan. Weight is 50 kg. He will be given 1 g of IV Keppra. His vital signs were reviewed. He is mildly febrile on presentation, tachycardic. 9:55 a.m., the patient has received his IV Keppra. CT and chest x-ray are unremarkable. Plan will be to wake him and ambulate him. Laboratory work reviewed. Anemia noted which is stable from his last visit on December 02. 11:30 a.m., the patient is up and ambulatory to the bathroom. He is now requesting discharge. Repeat neurologic Assessment is nonfocal. He is ambulatory with a normal gait. Will fill a prescription for Keppra through the assistance program to manage his seizures. I discussed follow-up with [facility] for ongoing management of his seizures and his prescription Keppra. The patient was evaluated by case management. Plan will be to taxi him to directly to [facility] where he will be seen and prescriptions for his Keppra will be filled. Return to emergency department precautions reviewed with him. All of his questions were answered. 2:25 p.m., plan as above was aborted. The patient has been wandering out of his room, confused and disoriented. He has been incontinent of urine. We will admit him to the hospitalist service for further workup and evaluation. 2:30 p.m., spoke with hospitalist, Dr. Guajardo. Case discussed in detail. He accepts the patient for admission to the step-down unit. Urinalysis and urine tox screens have been ordered. Patient admitted in stable condition. Differential Diagnosis: The differential diagnosis on this patient includes but is not limited to breakthrough seizure, history of seizures with noncompliance with his Keppra. Pneumonia, urinary tract infection, serious bacterial infection, acute intracranial pathology unlikely. This represents a partial list of diagnoses considered. These considerations are based on history, physical exam, past history, reassessment and diagnostic testing. Smoking Status: Former smoker Constitutional: Initial Vital Signs Temperature (C) 38.3 C 12/12/16 08:22 Heart Rate 130 H 12/12/16 08:22 Respiratory Rate 30 H 12/12/16 08:22 Blood Pressure 155/105 H 12/12/16 08:22 O2 Sat (%) 95 12/12/16 08:22 O2 Delivery Mode Room Air O2 (L/minute) 4 Allergies/Adverse Reactions: venom-wasp [Wasp Venom] Allergy (Severe, Verified 12/12/16 08:28) Anaphylaxis venom-honey bee [bee venom (honey bee)] Allergy (Verified 12/12/16 08:28) Home Medications: Medication Instructions Recorded Atenolol [Tenormin 50 mg (*)] 50 mg PO DAILY #30 tab 03/14/16 Acetaminophen [Tylenol 325mg (*)] 650 mg PO Q4 PRN #0 tab 06/11/16 levETIRAcetam [Keppra 500 mg (*)] 1,000 mg PO BID #30 tab 06/11/16 LEVETIRACETAM [Keppra 1000 mg] 1,000 mg PO BID #14 tab 12/12/16 Medical Decision Making - Diagnostics Imaging Results: Imaging Impressions Head CT 12/12/16 08:19 Impression: 1. Mild cerebral atrophy. 2. Severe right maxillary sinusitis. 3. No acute hemorrhage, hydrocephalus or mass effect. 4.Consider MRI of the brain without and with contrast enhancement, if there is continued clinical concern. Findings and recommendations discussed with Emergency Department physician, Tona iL MD at 9:05 hour, 12/12/2016. Final report concurs with initial preliminary interpretation. Chest X-Ray 12/12/16 08:33 Impression: 1. AP recumbent changes (mild pulmonary venous hypertension is not excluded). 2. Mild perihilar bronchitis, without a focal infiltrate. If there is further clinical concern regarding the patient's symptoms, PA and lateral upright views of the department are suggested. - Data Points Laboratory Results: Laboratory Results 12/12/16 Unknown 12/12/16 Unknown 12/12/16 12/12/16 Unknown Unknown WBC 5.51 10^3/uL 10^3/uL (3.80-9.50) RBC 3.61 10^6/uL L 10^6/uL (4.40-6.38) Hgb 8.8 g/dL L g/dL (13.7-17.5) Hct 29.9 % L % (40.0-51.0) MCV 82.8 fL fL (81.5-99.8) MCH 24.4 pg L pg (27.9-34.1) MCHC 29.4 g/dL L g/dL (32.4-36.7) RDW 18.2 % H % (11.5-15.2) Plt Count 610 10^3/uL H 10^3/uL (150-400) MPV 8.3 fL L fL (8.7-11.7) Neut % (Auto) Not Reported Lymph % (Auto) Not Reported [place] % (Auto) Not Reported Eos % (Auto) Not Reported Baso % (Auto) Not Reported Nucleat RBC Rel Count 0.0 % % (0.0-0.2) Absolute Neuts (auto) Not Reported Absolute Lymphs (auto) Not Reported Absolute Monos (auto) Not Reported Absolute Eos (auto) Not Reported Absolute Basos (auto) Not Reported Absolute Nucleated RBC 0.00 10^3/uL 10^3/uL (0-0.01) Immature Gran % Not Reported Seg Neutrophils % 51 % % Lymphocytes % 11 % % Monocytes % 33 % % Eosinophils % 3 % % Basophils % 2 % % Immature Gran # Not Reported Absolute Seg Neuts 2.81 10^/uL 10^/uL (1.70-6.50) Absolute Lymphocytes 0.61 10^3/uL L 10^3/uL (1.00-3.00) Absolute Monocytes 1.82 10^3/uL H 10^3/uL (0.30-0.80) Absolute Eosinophils 0.17 10^3/uL 10^3/uL (0.03-0.40) Absolute Basophils 0.11 10^3/uL H 10^3/uL (0.02-0.10) Platelet Estimate INCREASED H (ADEQ) Polychromasia 1+ H Hypochromasia 2+ H Elliptocytes 1+ H Acanthocytes (Spur) 2+ H Smear Review By Pending Sodium 145 mEq/L H mEq/L (134-144) Potassium 4.8 mEq/L mEq/L (3.5-5.2) Chloride 106 mEq/L mEq/L (97-110) Carbon Dioxide 17 mEq/l L mEq/l (22-31) Anion Gap 22 mEq/L H mEq/L (8-16) BUN 11 mg/dL mg/dL (7-23) Creatinine 1.4 mg/dL H mg/dL (0.7-1.3) Estimated GFR 52 Glucose 126 mg/dL H mg/dL (70-100) Calcium 8.9 mg/dL mg/dL (8.5-10.4) Ethyl Alcohol < 10 mg/dL mg/dL (0-10) Medications Given: Discontinued Medications Sodium Chloride (Ns) 1,000 mls @ 0 mls/hr IV ONCE ONE PRN Reason: Wide Open Stop: 12/12/16 08:20 Last Admin: 12/12/16 08:31 Dose: 1,000 mls Levetiracetam 1,000 mg/ Sodium (Chloride) 110 mls @ 440 mls/hr IV EDNOW ONE Stop: 12/12/16 08:34 Last Admin: 12/12/16 08:57 Dose: 110 mls Lorazepam (Ativan Injection) 2 mg IVP EDNOW ONE Stop: 12/12/16 08:20 Last Admin: 12/12/16 08:25 Dose: 2 mg Departure - Departure Disposition: [facility] Inpatient Acute Clinical Impression: Seizure, History of seizure disorder, Altered mental status, Anemia, Fever Condition: Good Instructions: Epilepsy (ED) Additional Instructions: Read and follow provided instructions. Follow-up with your primary care physician at [facility] tomorrow for re- evaluation today as discussed. You will also need to fill your prescription for Keppra 3 them. Take medication as prescribed for your seizure. Return to the emergency department for seizure, worsening symptoms or other serious concerns. Referrals: [facility],. [Clinic] - As per Instructions Prescriptions: LEVETIRACETAM [Keppra 1000 mg] 1,000 mg PO BID #14 tab
[2016-12-12 09:17] LABS: ELLIPTOCYTES 1+; HYPOCHROMIA 2+; PLATELET ESTIMATE INCREASED (ADEQ); POLYCHROMASIA 1+
[2016-12-12 09:18] LABS: ACANTHOCYTES 2+
[2016-12-12] MEDS ORDERED: ACETAMINOPHEN 325 MG TAB PO PRN (14:57)
[2016-12-12] MEDS ORDERED: ONDANSETRON DISINTEGRATING 4 MG TAB PO PRN (14:57)
[2016-12-12] MEDS ORDERED: ONDANSETRON 4 MG/2 ML VIAL IVP PRN (14:57)
[2016-12-12] MEDS ORDERED: THIAMINE HCL 500 MG in NS 100 ML IV ONE (15:01)
[2016-12-12] MEDS ORDERED: LORazepam 1 MG TAB PO PRN (15:01)
[2016-12-12] MEDS ORDERED: DEXMEDETOMIDINE HCL 400 MCG in NS 100 ML IV PRN (15:01)
[2016-12-12] MEDS ORDERED: LORazepam 2 MG/ML INJ IVP PRN ×2 (15:01→17:49)
--- NOTE | 2016-12-12 15:11 | PDGENHP ---
History and Physical - Chief Complaint Acute seizure - History of Present Illness PCP: Ramonita Arroyo at [facility] HPI: 61-year-old male presenting with acute seizure characterized as tonic- clonic movements with onset of symptoms on the afternoon of presentation, witnessed in the field, witnessed by EMS, witnessed by emergency department provider Dr. Tona Li. The patient had intermittent episodes and his most recent 1 had duration approximately 1 minute, resolving prior to the administration of 2 mg of IV Ativan. That medication was followed up by 1000 mg of IV Keppra. After patient's seizure in the emergency department subsided, he continued to experience confusion, urinary incontinence, pruritus along his lower extremities, and facial twitching as well as persistent physical movements. The patient is unable to provide any history of what transpired prior to his onset of seizures he does endorse that he has been adherent to his medications. He also endorses that he has drank alcohol recently. He otherwise cannot provide any other history. Per numerous care providers in the emergency department who have cared for this patient in the past, his degree of disorientation and abnormal physical movements are significantly different than his previous presentations. The emergency department staff been attempting to arrange outpatient follow-up for the patient at the [facility] but given his persistence of encephalopathy, it was deemed unsafe. History Information - Allergies/Home Medication List Allergies/Adverse Reactions: venom-wasp [Wasp Venom] Allergy (Severe, Verified 12/12/16 08:28) Anaphylaxis venom-honey bee [bee venom (honey bee)] Allergy (Verified 12/12/16 08:28) Home Medications: Atenolol [Tenormin 50 mg (*)] 50 mg PO DAILY 12/12/16 [Last Taken Unknown] I have personally reviewed and updated: family history, medical history, social history, surgical history - Past Medical History Additional medical history: Seizure disorder, with medication non adherence. Alcoholism. Hepatitis C virus. Hypertension. Chronic kidney disease baseline creatinine 1.2-1.4 - Surgical History Reports: no pertinent surgical hx - Family History Additional family history: patient denies family history of seizures - Social History Smoking Status: Former smoker Alcohol Use: Other (patient is reportedly alcoholic with recent alcohol use) Drug Use: Other ( patient is unable to answer whether he consumes any other drugs) Additional social history: patient is reportedly homeless Review of Systems ROS: 10pt was reviewed & negative except for what was stated in HPI & below Genitourinary: Reports: incontinence Neurological: Reports: seizure Physical Exam Temp Pulse Resp BP Pulse Ox 38.3 C 96 14 144/74 H 96 12/12/16 08:22 12/12/16 12:00 12/12/16 12:00 12/12/16 12:00 12/12/16 12:00 Constitutional: no apparent distress ( mild to moderate distress patient is unable to further characterize), chronically ill appearing, uncomfortable, unkempt Eyes: PERRL, anicteric sclera, EOMI Ears, Nose, Mouth, Throat: other ( exceptionally poor dentition, tacky mucous membranes) Cardiovascular: regular rate and rhythym, no murmur, rub, or gallop, No edema Respiratory: no respiratory distress, no rales or rhonchi, clear to auscultation Gastrointestinal: normoactive bowel sounds, soft, non-tender abdomen, no palpable masses Genitourinary: no bladder fullness, no bladder tenderness Skin: other ( patient is warm but does not have any evidence of lacerations or abrasions, he has numerous scabbed areas on his bilateral lower extremities from what appears to be picking and scratching) Musculoskeletal: other ( tenderness on flexion of his neck as well as with rotation) Neurologic: other ( alert awake oriented x2 to person and place not to time), No asterixes ( no tremulousness) Psychiatric: encephalopathic ( patient is unable to fully participate in exam, concentration is 0/7), anxious, agitated, other ( cooperative and follows commands) Lab Data & Imaging Review 12/12/16 Unknown 12/12/16 Unknown WBC 5.51 10^3/uL (3.80-9.50) 12/12/16 Unknown RBC 3.61 10^6/uL (4.40-6.38) L 12/12/16 Unknown Hgb 8.8 g/dL (13.7-17.5) L 12/12/16 Unknown Hct 29.9 % (40.0-51.0) L 12/12/16 Unknown MCV 82.8 fL (81.5-99.8) 12/12/16 Unknown MCH 24.4 pg (27.9-34.1) L 12/12/16 Unknown MCHC 29.4 g/dL (32.4-36.7) L 12/12/16 Unknown RDW 18.2 % (11.5-15.2) H 12/12/16 Unknown Plt Count 610 10^3/uL (150-400) H 12/12/16 Unknown MPV 8.3 fL (8.7-11.7) L 12/12/16 Unknown Neut % (Auto) Not Reported 12/12/16 Unknown Lymph % (Auto) Not Reported 12/12/16 Unknown [place] % (Auto) Not Reported 12/12/16 Unknown Eos % (Auto) Not Reported 12/12/16 Unknown Baso % (Auto) Not Reported 12/12/16 Unknown Nucleat RBC Rel Count 0.0 % (0.0-0.2) 12/12/16 Unknown Absolute Neuts (auto) Not Reported 12/12/16 Unknown Absolute Lymphs (auto) Not Reported 12/12/16 Unknown Absolute Monos (auto) Not Reported 12/12/16 Unknown Absolute Eos (auto) Not Reported 12/12/16 Unknown Absolute Basos (auto) Not Reported 12/12/16 Unknown Absolute Nucleated RBC 0.00 10^3/uL (0-0.01) 12/12/16 Unknown Immature Gran % Not Reported 12/12/16 Unknown Seg Neutrophils % 51 % 12/12/16 Unknown Lymphocytes % 11 % 12/12/16 Unknown Monocytes % 33 % 12/12/16 Unknown Eosinophils % 3 % 12/12/16 Unknown Basophils % 2 % 12/12/16 Unknown Immature Gran # Not Reported 12/12/16 Unknown Absolute Seg Neuts 2.81 10^/uL (1.70-6.50) 12/12/16 Unknown Absolute Lymphocytes 0.61 10^3/uL (1.00-3.00) L 12/12/16 Unknown Absolute Monocytes 1.82 10^3/uL (0.30-0.80) H 12/12/16 Unknown Absolute Eosinophils 0.17 10^3/uL (0.03-0.40) 12/12/16 Unknown Absolute Basophils 0.11 10^3/uL (0.02-0.10) H 12/12/16 Unknown Platelet Estimate INCREASED (ADEQ) H 12/12/16 Unknown Polychromasia 1+ H 12/12/16 Unknown Hypochromasia 2+ H 12/12/16 Unknown Elliptocytes 1+ H 12/12/16 Unknown Acanthocytes (Spur) 2+ H 12/12/16 Unknown Sodium 145 mEq/L (134-144) H 12/12/16 Unknown Potassium 4.8 mEq/L (3.5-5.2) 12/12/16 Unknown Chloride 106 mEq/L (97-110) 12/12/16 Unknown Carbon Dioxide 17 mEq/l (22-31) L 12/12/16 Unknown Anion Gap 22 mEq/L (8-16) H 12/12/16 Unknown BUN 11 mg/dL (7-23) 12/12/16 Unknown Creatinine 1.4 mg/dL (0.7-1.3) H 12/12/16 Unknown Estimated GFR 52 12/12/16 Unknown Glucose 126 mg/dL (70-100) H 12/12/16 Unknown Calcium 8.9 mg/dL (8.5-10.4) 12/12/16 Unknown Ethyl Alcohol < 10 mg/dL (0-10) 12/12/16 Unknown Visualized and Interpreted Chest x-ray results: Yes Chest X-Ray results: no infiltrate, other ( mild peribronchial thickening) Assessment & Plan Assessment: 61-year-old male presents with acute seizure complicated by systemic inflammatory response syndrome and acute encephalopathy Plan: 1. Seizure disorder. Acute, most likely precipitated by medication non adherence per patient's history, that being said the patient reports that he has been adherent to his medications and further history could be obtained once the patient has no longer encephalopathic - discussed with Dr. Tona Li, he has reported to me that the patient received 2 mg of IV Ativan in the emergency department followed by 1000 mg of IV Keppra - will place patient on seizure precautions, admit to step-down unit as is unclear whether his seizure was provoked by acute alcohol withdrawal - continue 750 mg of IV Keppra twice daily given his encephalopathy and potential that a 1000 mg may be somewhat mind-altering - check tox screen is a precipitant, check an infectious causes - get Neurology consultation 2. Encephalopathy. Acute, new problem this provider, further workup is indicated. Patient appears to be more encephalopathic than he usually is when he presents for breakthrough seizures in the setting of medication non adherence , unclear whether this is secondary to an infectious process or meningitis versus postictal state or acute alcohol withdrawal - get lumbar puncture, premedicate with 2 mg of IV Ativan - send respiratory viral panel - send urinalysis - send serum ammonium level given his underlying hepatitis C virus - monitor for signs and symptoms of acute alcohol withdrawal placed on CIWA protocol - give high-dose IV thiamine, folate and multivitamin 3. Systemic inflammatory response syndrome. Acute, new problem this provider, further workup indicated. Evidenced by tachycardia, tachypnea, fever without clear source of infection comma chest x-ray demonstrates no evidence of aspiration pneumonia - rule out meningitis, out viral precipitant - continue IV fluids - hold on empiric antibiotics at this time 4. Chronic kidney disease. Stage III, monitor urine output, creatinine currently at baseline 5. Hypertension. Chronic, hold beta-sharmila given his chronic kidney disease and potentially infected state Diet. NPO with [employer] eval Prophylaxis. High risk patient heparin subcu Code. Full Disposition. Anticipated discharge uncertain this time anticipated length stay is greater than 48 hours warranting inpatient admission status for acute seizure complicated by high risk acute encephalopathy and systemic inflammatory response syndrome, requiring step-down unit level care. 35 minutes of critical care time spent with this patient, at bedside and coordinating his care with our caseworker protective services, emergency department provider, nursing staff, addressing the issues outlined above, patient remains high risk of worsening morbidity and/or mortality.
[2016-12-12] MEDS ORDERED: PERMETHRIN 5% 60 GM CREAM TP ONE (15:51)
[2016-12-12] MEDS ORDERED: diphenhydrAMINE 25 MG CAP PO PRN (16:38)
[2016-12-12] MEDS ORDERED: PERMETHRIN 1% 59 ML LOTION (Hair rinse) TP ONE (16:45)
[2016-12-12] MEDS: NS 1,000 ML IV SCH ×2 (16:56→23:00)
[2016-12-12] MEDS ORDERED: LICE KILLING SHAMPOO 118 ML TP ONE (17:00)
[2016-12-12] MEDS ORDERED: DEXMEDETOMIDINE HCL 400 MCG in NS 100 ML IV SCH (18:00)
[2016-12-12] MEDS: LORazepam 2 MG/ML INJ IVP SCH ×2 (18:46→22:39)
[2016-12-12] MEDS: levETIRAcetam 750 MG in NS 100 ML IV SCH (20:57)
[2016-12-12] MEDS: HEPARIN 5,000 UNIT/0.5 ML SYR SC SCH (22:39)
[2016-12-13] MEDS: LORazepam 2 MG/ML INJ IVP SCH ×2 (01:53→05:33)
[2016-12-13 04:37] LABS: ADD DIFF? YES; ADD MORPH? NO; ADD SCAN? NO; ATYPICAL LYMPHOCYTE FLAG 0 (0-99); FRAGMENT RBC FLAG 20 (0-99); HEMATOCRIT 24.3 % (40.0-51.0); HEMOGLOBIN 7.5 g/dL (13.7-17.5); LEFT SHIFT FLG 0 (0-99); LIPEMIA HEMOLYSIS FLAG 80 (0-99); MEAN CELL HEMOGLOBIN CONCENTR. 30.9 g/dL (32.4-36.7); MEAN CELL VOLUME 77.9 fL (81.5-99.8); MEAN PLATELET VOLUME 8.4 fL (8.7-11.7); PLATELET CLUMPS FLAG 0 (0-99); PLATELET COUNT 419 10^3/uL (150-400); RED BLOOD CELL COUNT 3.12 10^6/uL (4.40-6.38); RED CELL DISTRIBUTION WIDTH 18.1 % (11.5-15.2)
[2016-12-13 04:54] LABS: INR 1.03 (0.83-1.16); PROTIME(PATIENT) 13.4 SEC (12.0-15.0)
[2016-12-13 05:04] LABS: ALANINE AMINOTRANSFERASE 55 IU/L (21-72); ALBUMIN 2.9 g/dL (3.5-5.0); ALKALINE PHOSPHATASE 61 IU/L (38-126); ANION GAP 9 mEq/L (8-16); ASPARTATE AMINOTRANSFERASE 134 IU/L (17-59); BILIRUBIN,TOTAL 0.7 mg/dL (0.1-1.4); CALCIUM 7.4 mg/dL (8.5-10.4); CARBON DIOXIDE 19 mEq/l (22-31); CHLORIDE 113 mEq/L (97-110); CREATININE 1.1 mg/dL (0.7-1.3); GLOMERULAR FILTRATION RATE > 60; GLUCOSE 100 mg/dL (70-100); MAGNESIUM 1.9 mg/dL (1.6-2.3); POTASSIUM 4.1 mEq/L (3.5-5.2); SODIUM 141 mEq/L (134-144); TOTAL PROTEIN 5.6 g/dL (6.3-8.2)
[2016-12-13 05:16] LABS: HYPOCHROMIA 1+; KERATOCYTES 1+; PLATELET ESTIMATE ADEQUATE (ADEQ); POLYCHROMASIA 1+
[2016-12-13] MEDS: HEPARIN 5,000 UNIT/0.5 ML SYR SC SCH ×3 (05:33→21:00)
[2016-12-13] MEDS ORDERED: THIAMINE HCL 100 MG TAB PO SCH (09:00)
[2016-12-13] MEDS: MULTIVITAMINS 1 EACH TAB PO SCH (09:48)
[2016-12-13] MEDS: levETIRAcetam 750 MG in NS 100 ML IV SCH ×2 (09:48→20:36)
[2016-12-13] MEDS: FOLIC ACID 1 MG TAB PO SCH (09:48)
--- NOTE | 2016-12-13 09:49 | GCON ---
[f rep st] CONSULTATION NEUROLOGIC CONSULTATION. HISTORY OF PRESENT ILLNESS: This patient is a 61-year-old gentleman who I am asked to see in neurol ogic consultation regarding seizure activity. He came to the hospital yesterday after having witnes sed generalized seizure activity by EMS as well as in the emergency department and received lorazepa m and Keppra was loaded. He apparently is supposed to be on seizure medications but is noncompliant with his treatment, and it is not clear that he consistently does any followup. He has a history o f excessive alcohol use and reported drinking. He was agitated last night and received regular dose s of lorazepam and was placed on Precedex, which have all been ceased although his lorazepam last do se was 6 a.m. The Precedex was just stopped about 45 minutes ago. He is starting to become more al ert and did not have any reported seizures during the night. The patient reports no headache or foc al numbness or weakness. He tells me that he currently feels thirsty but otherwise does not have an y specific complaints and does not remember the events of the last 24 hours. MEDICATIONS: His medication at home is atenolol. We do not know about the anticonvulsant medicatio ns. ALLERGIES: Apparently no drug allergies. PAST MEDICAL HISTORY: He has a history of seizure, alcoholism, hepatitis C, hypertension, and chron ic kidney disease. FAMILY HISTORY: Negative for seizures. SOCIAL HISTORY: History of smoking cigarettes in the past. Chronic alcoholism. Other drug use is uncertain. He is currently homeless. REVIEW OF SYSTEMS: No fever, chills, nausea, vomiting, or diarrhea. No chest pain, palpitations, o r shortness of breath. PHYSICAL EXAM: VITAL SIGNS: Blood pressure is 104/66, pulse of 53, respirations 17, temperature 36 .8. GENERAL: He is well developed, in no acute distress. EYES: Clear. NECK: Supple. No bruits or masses. CARDIAC: Regular rate and rhythm. No murmur. NEUROLOGIC: He is lethargic but arousa ble and knows he is in [place], [place]. He was not sure of the month or year. He is able to foll ow simple commands in all the extremities and answer my questions and does say that he is feeling th irsty. Pupils 3 mm and reactive. Extraocular movements intact. Normal facial sensation and moveme nt. No focal numbness or weakness. Reflexes 1+. LABORATORY TESTS: Laboratory studies show some metabolic acidosis but otherwise relatively unremark able electrolytes. Negative tox screen for alcohol. Normal INR and the CBC is unremarkable. He had a head CT obtained in the emergency department yesterday morning. I have reviewed that and t hat shows no evidence of acute pathology and just some generalized atrophy. IMPRESSION: The patient has a history of seizure disorder with alcoholism and has presented with a series of seizures, which have now resolved, most likely related to a combination of alcohol withdra wal and medication noncompliance. He seems to be returning toward his baseline now. The lethargy i s likely just a result of medications, which are starting to wear off. He should continue on his Ke ppra regularly if possible and discontinue the lorazepam unless it is needed for withdrawal phenomen a. Once he is back to his baseline, he should be able to be discharged and follow up with the [facility] or can certainly follow up with us as needed for any neurologic questions as they arise. Total unit time of 50 minutes, greater than 50% time [id number] evaluation. /[id number]/MODL
--- NOTE | 2016-12-13 12:09 | HOSPPROG ---
Hospitalist Progress Note Assessment/Plan: Seizure - with h/o etoh and prior sz disorder, non-compliant with medications. He has [facility] refills [facility] and they've asked we don't provide a new Rx so they can track his refills. -cont Keppra -prn ativan for seizure activity H/O alcohol dependence - CIWA's not suggesting significant w/d, though he is quite unsteady on his feet. This could be side effects from previously administered ativan and precedex. -cont CIWA monitoring for w/d symptoms, prn ativan -cont PT/OT Encephalopathy - send drug screen, start IV thiamine, ?wernicke's Full code Dispo - cont inpt Subjective: Pt is confused, a bit sedated. Unsteady on his feet with PT Objective: Vital Signs Temp Pulse Resp BP Pulse Ox 36.8 C 53 L 17 104/66 100 12/13/16 07:47 12/13/16 07:47 12/13/16 07:47 12/13/16 07:47 12/13/16 07:47 Microbiology 12/12/16 17:55 Respiratory Panel (PCR) - Final Nasal, Sinus - [place] Viral Transport No Organism Detected Laboratory Results 12/13/16 04:20 12/13/16 04:20 12/12/16 12/13/16 12/14/16 05:59 05:59 05:59 Intake Total 3645.7 Output Total 0 Balance 3645.7 PT 13.4 SEC (12.0-15.0) 12/13/16 04:20 INR 1.03 (0.83-1.16) 12/13/16 04:20 - Physical Exam Constitutional: chronically ill appearing Eyes: PERRL Ears, Nose, Mouth, Throat: moist mucous membranes Cardiovascular: regular rate and rhythym Respiratory: no respiratory distress, clear to auscultation Gastrointestinal: normoactive bowel sounds, soft, non-tender abdomen Skin: warm Musculoskeletal: full muscle strength Neurologic: other (minimal tremor) Psychiatric: encephalopathic ICD10 Worksheet Patient Problems: Problems Problem Status Onset Altered mental status Acute Anemia Acute Fever Acute History of seizure disorder Acute Seizure Acute Alcohol intoxication Acute Laceration Acute Seizure Acute Seizure disorder Acute
[2016-12-13 12:46] LABS: COLOR YELLOW; LEUKOCYTE ESTERASE,URINE NEGATIVE (NEGATIVE); NITRITE,URINE NEGATIVE (NEGATIVE)
[2016-12-13 13:06] LABS: MUCUS TRACE /lpf (NONE-1+)
[2016-12-13 14:08] LABS: PHENCYCLIDINE URINE BCH < 6 ng/ml (NEGATIVE); PHENCYCLIDINE URINE BCH NEGATIVE (NEGATIVE)
[2016-12-13 14:18] LABS: TETRAHYDROCANNABINOL URINE > 800 ng/mL (NEGATIVE)
[2016-12-13 14:28] LABS: TETRAHYDROCANNABINOL URINE > 800 ng/mL (NEGATIVE)
[2016-12-13] MEDS: THIAMINE HCL 500 MG in NS 100 ML IV SCH ×2 (15:42→21:00)
[2016-12-14] MEDS: HEPARIN 5,000 UNIT/0.5 ML SYR SC SCH (05:59)
[2016-12-14] MEDS: THIAMINE HCL 500 MG in NS 100 ML IV SCH (05:59)
[2016-12-14 06:27] LABS: % IMMATURE GRANULYOCYTES 0.2 % (0.0-1.1); ABSOLUTE IMMATURE GRANULOCYTES 0.01 10^3/uL (0.00-0.10); ADD DIFF? NO; ADD MORPH? NO; ADD SCAN? NO; ATYPICAL LYMPHOCYTE FLAG 0 (0-99); FRAGMENT RBC FLAG 20 (0-99); HEMATOCRIT 23.5 % (40.0-51.0); HEMOGLOBIN 7.4 g/dL (13.7-17.5); LEFT SHIFT FLG 0 (0-99); LIPEMIA HEMOLYSIS FLAG 80 (0-99); MEAN CELL HEMOGLOBIN 24.3 pg (27.9-34.1); MEAN CELL HEMOGLOBIN CONCENTR. 31.5 g/dL (32.4-36.7); MEAN PLATELET VOLUME 8.7 fL (8.7-11.7); PLATELET CLUMPS FLAG 0 (0-99); PLATELET COUNT 489 10^3/uL (150-400); RED BLOOD CELL COUNT 3.05 10^6/uL (4.40-6.38); RED CELL DISTRIBUTION WIDTH 17.8 % (11.5-15.2)
[2016-12-14 06:44] LABS: ALANINE AMINOTRANSFERASE 50 IU/L (21-72); ALBUMIN 2.5 g/dL (3.5-5.0); ALKALINE PHOSPHATASE 55 IU/L (38-126); ANION GAP 4 mEq/L (8-16); ASPARTATE AMINOTRANSFERASE 89 IU/L (17-59); BILIRUBIN,TOTAL 0.3 mg/dL (0.1-1.4); CALCIUM 7.4 mg/dL (8.5-10.4); CARBON DIOXIDE 23 mEq/l (22-31); CHLORIDE 109 mEq/L (97-110); CREATININE 0.9 mg/dL (0.7-1.3); GLOMERULAR FILTRATION RATE > 60; GLUCOSE 75 mg/dL (70-100); MAGNESIUM 1.5 mg/dL (1.6-2.3); POTASSIUM 3.8 mEq/L (3.5-5.2); SODIUM 136 mEq/L (134-144); TOTAL PROTEIN 5.3 g/dL (6.3-8.2)
[2016-12-14] MEDS ORDERED: PROTOCOL MAGNESIUM 1 DOSE IV PRN (08:03)
[2016-12-14 08:31] VITALS: BP 137/76; PULSE 74; RESP 18; TEMP 98.1; O2SAT 100
[2016-12-14] MEDS ORDERED: MAGNESIUM SULF 1 GM/DEXTROSE 100 ML IV ONE (08:34)
[2016-12-14] MEDS: FOLIC ACID 1 MG TAB PO SCH (08:55)
[2016-12-14] MEDS: levETIRAcetam 750 MG in NS 100 ML IV SCH (08:55)
[2016-12-14] MEDS: MULTIVITAMINS 1 EACH TAB PO SCH (08:55)
--- NOTE | 2016-12-14 21:52 | GDS ---
[f rep st] DISCHARGE SUMMARY DISCHARGE DIAGNOSES: 1. Seizure. 2. History of seizure disorder. 3. History of alcohol dependence. 4. Encephalopathy resolved. CONSULTANTS: Damien Dan MD, neurology. IMAGING STUDIES/PROCEDURES: Head CT showed mild cerebral atrophy, severe right maxillary sinusitis. No acute hemorrhage, hydrocephalus or mass was seen. HISTORY OF DETAILS: Please see dictated history and physical dated December 12, 2016. In brief, this is a 61-year-old male, history of polysubstance abuse and homelessness with a seizure disorder who pre sents emergency department after a witnessed seizure. He had repeat seizures in the emergency depar tment and received IV Ativan followed by IV Keppra. He was admitted to the hospital for further man agement. HOSPITAL COURSE: The patient was Keppra loaded and resumed on his outpatient Keppra dose. He was p laced on seizure precautions and had no further seizure activity during the hospitalization. Furthe r history from his outpatient primary care clinic reveals he is likely noncompliant with his medicat ions. He developed some agitation during hospitalization briefly requiring Precedex so this was dis continued, and the patient returned to his baseline function. DISPOSITION: Patient is discharged to his homeless status in stable condition. DISCHARGE MEDICATIONS: Please see [facility] for complete updated outpatient. New medications on dis charge include folic acid 1 mg p.o. daily, multivitamin 1 p.o. daily, thiamin 100 mg p.o. daily and he is instructed to obtain a refill of his Keppra from the [facility] where he has 11 refills a vailable. They have requested we not prescribe a new prescription for Keppra as they would like to track his refills. Hopefully he will be compliant with his medications and if he does so, he is les s likely to have recurrent seizures. FOLLOW UP: Follow up with the [facility]. /[id number]/MODL
== END 2016-12-14 11:42 | disposition home or self-care (01) | DRG 100 ==
LOC: EDUNIT# → F2N 15:32
PROVIDERS: ADMIT Internal Medicine; ATTEND Internal Medicine
DX: G40.909 Epilepsy, unspecified, not intractable, without status epilepticus (principal); F10.20 Alcohol dependence, uncomplicated; G93.40 Encephalopathy, unspecified; Z59.0 Homelessness; Z91.14 Patient's other noncompliance with medication regimen; I12.9 Hypertensive chronic kidney disease with stage 1 through stage 4 chronic kidney disease, or unspecified chronic kidney disease; B19.20 Unspecified viral hepatitis C without hepatic coma; J32.0 Chronic maxillary sinusitis; N18.3 Chronic kidney disease, stage 3 (moderate)
CPT/HCPCS: 80307; 92610-GN; 96365; 97162-GP; 97165-GO; 97535-GO; G0480; J1953; J2060; J3411; J3475